=== PATIENT | female | born 1975 | race American Indian/Alaskan Native ===

== ENCOUNTER 2021-03-03 07:20 | Emergency (ER) | payer SELFPAY ==
[2021-03-03 07:54] VITALS: BP 141/72
--- NOTE | 2021-03-03 09:50 | XRay Report ---
CHEST 2 VIEWS INDICATION / CLINICAL INFORMATION: chest pain. COMPARISON: None available. FINDINGS: SUPPORT DEVICES: None. HEART / MEDIASTINUM: No significant abnormality. LUNGS / PLEURA: No significant pulmonary or pleural abnormality. No pneumothorax. ADDITIONAL FINDINGS: No significant additional findings. IMPRESSION: 1. No acute cardiopulmonary abnormality. Signer Name: Low Ott MD Signed: 03/03/2021 9:46 AM Workstation Name: [id number]
[2021-03-03 10:26] LABS: Basophils # (Auto) 0.1 K/mm3 (0.0-0.1); Basophils % (Auto) 0.8 % (0.0-1.8); Eosinophils # (Auto) 0.2 K/mm3 (0.0-0.4); Eosinophils % (Auto) 2.5 % (0.0-4.3); Hematocrit 43.1 % (30.3-42.9); Hemoglobin 14.4 gm/dl (10.1-14.3); Lymphocytes # (Auto) 2.6 K/mm3 (1.2-5.4); Lymphocytes % (Auto) 32.3 % (13.4-35.0); Mean Corpuscular HGB Conc 34 % (30-34); Mean Corpuscular Volume 84 fl (79-97); Monocytes # (Auto) 0.9 K/mm3 (0.0-0.8); Monocytes % (Auto) 11.5 % (0.0-7.3); Platelet Count 291 K/mm3 (140-440); Red Blood Count 5.12 M/mm3 (3.65-5.03); Red Cell Distribution Width 13.5 % (13.2-15.2)
[2021-03-03 10:50] LABS: Alanine Aminotransferase 13 units/L (7-56); Albumin 3.7 g/dL (3.9-5); BUN/Creatinine Ratio 16; Blood Urea Nitrogen 8 mg/dL (7-17); Calcium 8.7 mg/dL (8.4-10.2); Creatine Kinase MB 1.8 ng/mL (0.0-4.0); Hemolysis Index 5
--- NOTE | 2021-03-03 10:59 | Emergency Department Report ---
ED Chest Pain HPI - General Chief Complaint: Chest Pain Stated Complaint: CHEST PAIN Time Seen by Provider: 03/03/21 10:57 Source: patient Mode of arrival: Ambulatory Limitations: No Limitations - History of Present Illness Initial Comments: 45-year-old -[place] female with a history of diabetes on insulin 70/30 but is noncompliant presents to the emergency room complaining of chest pain that happened this morning while lying in bed. Patient states that the pain is on the right side of her chest and it radiated down her arm. Patient also r eports that she has intermittent lower extremity swelling. Patient reports she is followed by Magdalena Brock Nam physician captain assistant at [facility]. Patient states that her diabetes is not in control secondary to her noncompliance in taking her medication and her diet. Patient denies any nausea no vomiting no shortness of breath no feeling of impending doom. She denies any headache change in vision any leg cramping abdominal pain decreased urine output. MD Complaint: chest pain -: This morning Time: 05:00 Onset: during rest Pain Location: right chest Pain Radiation: RUE Severity: mild Severity scale (0 -10): 4 Quality: aching Consistency: intermittent Improves With: nothing Worsens With: nothing re: denies: nausea, vomting, diaphoresis, dyspnea, sense of impending doom Other Symptoms: leg swelling (Intermittent resolved today). denies: cough, fever, syncope, rash, acid taste in mouth, palpitations, burping - Related Data On Oral Contraceptives: No Home Medications Medication Instructions Recorded Confirmed Last Taken Insulin NPH/Regular [Novolin 70/30] 1 unit SUB-Q BID 03/03/21 03/03/21 Unknown metFORMIN [Glucophage] 500 mg PO BID 03/03/21 03/03/21 Unknown Allergies Allergy/AdvReac Type Severity Reaction Status Date / Time No Known Allergies Allergy Verified 03/03/21 07:54 Heart Score - HEART Score History: Slightly suspicious EKG: Non-specific Age: 45-65 Risk factors: 1-2 risk factors Troponin: < normal limit HEART Score: 3 - EKG Read Time Time EKG Completed: 07:58 EKG Read Time: 08:05 ED Review of Systems ROS: Stated complaint: CHEST PAIN Other details as noted in HPI Comment: All other systems reviewed and negative ED Past Medical Hx - Past Medical History Hx Diabetes: Yes - Surgical History Additional Surgical History: x1 - Social History Smoking Status: Never Smoker Substance Use Type: None - Medications Home Medications: Home Medications Medication Instructions Recorded Confirmed Last Taken Type Insulin NPH/Regular [Novolin 70/30] 1 unit SUB-Q BID 03/03/21 03/03/21 Unknown History metFORMIN [Glucophage] 500 mg PO BID 03/03/21 03/03/21 Unknown History ED Physical Exam - General Limitations: No Limitations General appearance: alert, in no apparent distress - Head Head exam: Present: atraumatic, normocephalic - Eye Eye exam: Present: normal appearance - ENT ENT exam: Present: mucous membranes moist - Neck Neck exam: Present: normal inspection - Respiratory Respiratory exam: Present: normal lung sounds bilaterally. Absent: respiratory distress, wheezes, chest wall tenderness, accessory muscle use - Cardiovascular Cardiovascular Exam: Present: regular rate, normal rhythm. Absent: systolic murmur, diastolic murmur, rubs, gallop - GI/Abdominal GI/Abdominal exam: Present: soft, normal bowel sounds - Extremities Exam Extremities exam: Present: normal inspection. Absent: full ROM, tenderness, normal capillary refill, joint swelling - Back Exam Back exam: Present: normal inspection, full ROM - Neurological Exam Neurological exam: Present: alert, oriented X3 - Psychiatric Psychiatric exam: Present: normal affect, normal mood - Skin Skin exam: Present: warm, dry, intact, normal color. Absent: rash ED Course Vital Signs 03/03/21 03/03/21 07:51 12:10 Temperature 98.4 F Pulse Rate 89 Respiratory 16 16 Rate Blood Pressure 141/72 O2 Sat by Pulse 96 96 Oximetry DYLAN score - Dylan Score Age > 65: (0) No Aspirin use within the Past 7 Days: (0) No 3 or more CAD Risk Factors: (1) Yes 2 or more Angina events in past 24 hrs: (0) No Known CAD with more than 50% Stenosis: (0) No Elevated Cardiac Markers: (0) No ST Deviation Greater than 0.5mm: (0) No DYLAN Score: 1 ED Medical Decision Making - Lab Data Result diagrams: 03/03/21 09:42 03/03/21 09:42 - EKG Data Rate: normal - Radiology Data Radiology results: report reviewed [facility] [address] [place] [address] XRay Report Signed Patient: HENNY LOWERY MR#: [id number] : 1975 Acct:[id number] Age/Sex: 45 / F ADM Date: 03/03/21 Loc: ED Attending Dr: Ordering Physician: TRISTAN STORM Date of Service: 03/03/21 Procedure(s): XR chest routine 2V Accession Number(s): [id number] cc: TRISTAN STORM Fluoro Time In Minutes: CHEST 2 VIEWS INDICATION / CLINICAL INFORMATION: chest pain. COMPARISON: None available. FINDINGS: SUPPORT DEVICES: None. HEART / MEDIASTINUM: No significant abnormality. LUNGS / PLEURA: No significant pulmonary or pleural abnormality. No pneumothorax. ADDITIONAL FINDINGS: No significant additional findings. IMPRESSION: 1. No acute cardiopulmonary abnormality. Signer Name: Laura Ott MD Signed: 03/03/2021 9:46 AM Workstation Name: [id number] Transcribed By: SS Dictated By: LAURA OTT Electronically Authenticated By: LAURA OTT Signed Date/Time: 03/03/21945 DD/ 4 TD/TT: Print Cancel - Medical Decision Making 45-year-old -[place] female with a history of diabetes on insulin 70/30 but is noncompliant presents to the emergency room complaining of chest pain that happened this morning while lying in bed. Patient states that the pain is on the right side of her chest and it radiated down her arm. Patient also reports that she has intermittent lower extremity swelling. Patient reports she is followed by Mr. Brock Nam physician captain assistant at [facility]. Patient states that her diabetes is not in control secondary to her noncompliance in taking her medication and her diet. Patient denies any nausea no vomiting no shortness of breath no feeling of impending doom. She denies any headache change in vision any leg cramping abdominal pain decreased urine output. 2 neg troponin HEART Score for Major Cardiac Events 4 points Moderate Score (4-6 points) Risk of MACE of 12-16.6%. I discussed with patient that her risk factors indicates she is a candidate for admission for further cardiac work-up as she her heart score for Major cardiac event is 4 points which is moderate risk factor. Patient refused to be admitted. She is willing to sign AMA paperwork. Discussed with patient she can follow-up at [facility]. Critical care attestation.: If time is entered above; I have spent that time in minutes in the direct care of this critically ill patient, excluding procedure time. ED Disposition Clinical Impression: Atypical chest pain Disposition: DC-07 LEFT AGAINST MED ADVICE Is pt being admited?: No Does the pt Need Aspirin: No Condition: Stable Instructions: Nonspecific Chest Pain, Adult, [id number] Additional Instructions: I recommend that she stay to be admitted for chest pain. You do have multiple risk factors for cardiac disease. Referrals: PRIMARY CAREMD [Primary Care Provider] - 3-5 Days RBOCK NAM MD [Referring] - 3-5 Days [facility] [Provider Group] - 3-5 Days [facility] [Outside] - 3-5 Days Forms: Work/School Release Form(ED), AMA Form
[2021-03-03] MEDS ORDERED: SODIUM CHLORIDE 0.9% 1000 ML 1,000 ML IV ONE (11:59)
--- NOTE | 2021-03-04 13:45 | Electrocardiograph Report ---
[facility] Test Date: 2021-03-03 Test Time: 07:58:11 Pat Name: HENNY LOWERY Department: Room: Gender: F [employer] Application Architect: TV : 1975 Requested By: OLE FERREIRA Order Number: [id number] Reading MD: Osmar Rodríguez Measurements Intervals [place] Rate: 88 P: 55 VA: 164 QRS: -52 QRSD: 82 T: 50 QT: 366 QTc: 443 Interpretive Statements Sinus rhythm Left axis deviation No previous ECG available for comparison Electronically Signed On 03-04-2021 13:45:05 EDT by Osmar Rodríguez
== END 2021-03-03 14:03 | disposition left against medical advice (07) ==
LOC: ED 07:20
DX: R07.89 Other chest pain (principal); E11.9 Type 2 diabetes mellitus without complications; Z79.899 Other long term (current) drug therapy; Z98.890 Other specified postprocedural states
CPT/HCPCS: 36415; 71046; 80053; 82553; 82962; 84484; 84702; 85025; 93005